=== PATIENT | male | born 1960 | race Caucasian/White ===

== ENCOUNTER 2021-01-26 08:34 | Outpatient (CLI) | payer OTHER, SELFPAY ==
--- NOTE | ~2021-01-26 | US_ITS ---
EXAMINATION: US aorta [facility] DATE: 01/26/2021 09:50 INDICATION: Abdominal aortic aneurysm screening. TECHNIQUE: Grayscale, color Doppler, and pulsed Doppler images of the aorta and common iliac arteries were obtained. COMPARISON: None. FINDINGS: The aorta is normal in caliber and demonstrates atherosclerosis.. The right common iliac artery is no rmal in caliber. The left common iliac artery is normal in caliber. IMPRESSION: 1. Aortic atherosclerosis. No aneurysm. Reviewed, dictated and finalized at location B. [employer]
== END 2021-01-26 08:35 | disposition home or self-care (01) ==
LOC: ANHIMG 08:38
PROVIDERS: PCP Family Medicine Adolescent Medicine; Visit Provider Internal Medicine Cardiovascular Disease
DX: Z72.0 Tobacco use (principal); I70.0 Atherosclerosis of aorta
CPT/HCPCS: 76706

== ENCOUNTER 2022-06-18 00:35 | Day surgery (SDC) | payer OTHER, SELFPAY ==
[2022-06-18] VITALS (8 sets, daily range): BP systolic 150–165; BP diastolic 67–77; PULSE 48–57; RESP 10–21; TEMP 36.6; O2SAT 97–100; BMI 23.0
[2022-06-18 09:28] LABS: Basophils Absolute Auto 0.2 K/mm3 (0.0-0.1); Basophils Percent Auto 1.2 % (0.2-1.2); Hematocrit 49.5 % (42.0-52.0); Hemoglobin 16.4 g/dL (14.0-18.0); Immature Granulocyte Absolute 0.13 K/mm3 (0.00-0.031); Lymphocytes Percent Auto 20.2 % (18.3-44.2); Mean Corpuscular HGB Conc 33.1 g/dl (32-36); Mean Corpuscular Hemoglobin 32.8 pg (26-34); Mean Platelet Volume 9.9 fl (7.4-10.4); Monocytes Percent Auto 7.6 % (2.6-8.5); Platelet Count Result 222 k/mm3 (150-375); Red Cell Distribution Width 13.7 % (11.5-14.5); White Blood Count 12.9 K/mm3 (4.5-10.0)
[2022-06-18 10:01] LABS: Anion Gap 6 mmol/L (8-16); Blood Urea Nitrogen 11 mg/dL (9-20); Calcium 8.4 mg/dL (8.4-10.2); Carbon Dioxide 29 mmol/L (22-30); Chloride 104 mmol/L (98-107); Estimated CRCL calculation 72 ml/min; Estimated Glomerular Filt Rate > 60; Glucose 96 mg/dL (65-110); Potassium 4.2 mmol/L (3.4-5.0); Sodium 139 mmol/L (137-145)
--- NOTE | 2022-06-18 10:35 | SUR.PREOP ---
DR. SAEED TO BEDSIDE TO SPEAK W/ PT. PRIOR TO [facility].
--- NOTE | 2022-06-18 10:51 | WPDMODSED ---
Moderate Sedation Note-Pt Data Patient Data Diagnosis: coronary artery disease as evidenced by coronary CTA Present Complaint: no complaints Procedure to be performed/Plan: left heart catheterization Allergies Allergy/AdvReac Type Severity Reaction Status Date / Time codeine Allergy Unknown Nausea Verified 06/18/22 09:23 Home Medications Medication Instructions Recorded Confirmed Type aspirin 81 mg tablet,delayed 81 mg PO DAILY 06/18/22 06/18/22 History release atenolol 25 mg tablet 25 mg PO DAILY 06/18/22 06/18/22 History hydralazine 25 mg tablet 25 mg PO TID 06/18/22 06/18/22 History simvastatin 40 mg tablet 40 mg PO HS 06/18/22 06/18/22 History Current Medications: Active Medications Sodium Chloride (Normal Saline Iv) 500 mls @ 100 mls/hr IV CONT .[facility] Sedation/Anesthesia: No previous sedation/anesthesia problems (including family history). [facility] Family History Family History (Updated 05/18/16 @ 09:48 by DOCTOR UNKNOWN) Sibling Hypertension Mother Acute myocardial infarction Father Family history of lung cancer Other Cerebrovascular accident Diabetes mellitus Family history of cardiovascular disease Family history of malignant neoplasm Social History Social History Smoking status: Current every day smoker Alcohol intake: never Mod Sed Physical Exam Physical Exam Pre Procedural Exam: Normal: Appearance ( well-developed well-nourished white male appearing slightly older than his stated age), Neck, Throat, Airway, Heart Size, Heart Rate, Heart Rhythm, Neuro Exam and Extremities and Variation: Lungs ( breath sounds diminished otherwise clear) Hours since solid foods: 12 Hours since liquid intake: 12 Mallampati Classification: class II Internal Medicine - PN: Obj Da Vital Signs Vital Signs: Vital Signs - 24 hr 06/18/22 10:00 Temperature 36.6 C Pulse Rate 48 L Respiratory Rate 14 Blood Pressure 165/76 H Pulse Oximetry 100 Oxygen Delivery Room Air Meds/Results Medications: Active Medications Generic Name Dose Route Start Last Admin Trade Name Freq PRN Reason Stop Dose Admin Sodium Chloride 500 mls @ 100 mls/hr 06/18/22 09:00 Normal Saline Iv IV CONT .[facility] Labs 06/18/22 09:15 06/18/22 09:38 Labs: Laboratory Results - last 24 hr 06/18/22 06/18/22 09:15 09:38 WBC 12.9 H RBC 5.00 Hgb 16.4 Hct 49.5 MCV 99.0 MCH 32.8 MCHC 33.1 RDW 13.7 Plt Count 222 MPV 9.9 Immature Gran % (Auto) 1.0 H Neut % (Auto) 70.0 Lymph % (Auto) 20.2 [place] % (Auto) 7.6 Eos % (Auto) 0.0 Baso % (Auto) 1.2 Lymph # (Auto) 2.60 [place] # (Auto) 1.0 H Eos # (Auto) 0.0 Baso # (Auto) 0.2 H Abs Immat Gran (auto) 0.13 H Absolute Neuts (auto) 9.0 H Absolute Nucleated RBC 0.0 Nucleated RBC % 0.0 Sodium 139 Potassium 4.2 Chloride 104 Carbon Dioxide 29 Anion Gap 6 L BUN 11 Creatinine 0.80 Estim Creat Clear Calc 72 Estimated GFR > 60 Glucose 96 Calcium 8.4 ASA Classification/Sedation ASA Classification/Sedation ASA Class: II Emergent: No Risks: Risks, benefits and alternatives explained and patient/family accepted plan for sedation. Patient re-evaluated immediately prior to sedation.
--- NOTE | 2022-06-18 10:54 | PM.IMHP ---
H&P: HPI History of Present Illness Date/Time: 06/18/22 10:54 Chief Complaint: no complaints Narrative: this is a 61-year-old patient unknown to me prior to this procedure. He follows with my partner, Dr. Villagran and has a history of mild nonobstructive coronary artery disease identified by catheterization approximately 10 years ago. The patient subsequently was seen and evaluated because of a syncopal episode. Evaluation did not disclose any apparent reason for that. In subsequent follow-up because of his risk factors and ongoing cigarette smoking a coronary CTA was performed. This demonstrated what appears to be moderate multivessel coronary artery disease after this follow-up angiography was recommended for today. The patient states that he is active he does not notice any symptoms with exertion he is able to carry on normal activities although he does not exercise in any structured fashion. He has no symptoms of chest pain he does have some exertional shortness of breath which is relatively mild and chronic. He is not experiencing any orthopnea PND or accumulating edema. Review of Systems Constitutional: Constitutional: Reports no additional constitutional complaints Eyes: Eyes: Reports no additional eye complaints ENT: Reports system reviewed and no additional complaints, except as documented Cardiovascular: Cardiovascular: Reports no additional cardiovascular complaints Respiratory: Respiratory: Reports dyspnea on exertion Gastrointestinal: Gastrointestinal: Reports no additional gastrointestinal complaints Musculoskeletal: Musculoskeletal: Reports no additional musculoskeletal complaints Integumentary/Breasts: Skin/Breast: Reports system reviewed and no additional complaints, except as docu Neurologic: Reports system reviewed and no additional complaints, except as documented [facility] Family History Family History (Updated 05/18/16 @ 09:48 by DOCTOR UNKNOWN) Sibling Hypertension Mother Acute myocardial infarction Father Family history of lung cancer Other Cerebrovascular accident Diabetes mellitus Family history of cardiovascular disease Family history of malignant neoplasm Social History Social History Smoking status: Current every day smoker Alcohol intake: never Meds Home Medications and Allergies Home Medications Medication Instructions Recorded Confirmed Type aspirin 81 mg tablet,delayed 81 mg PO DAILY 06/18/22 06/18/22 History release atenolol 25 mg tablet 25 mg PO DAILY 06/18/22 06/18/22 History hydralazine 25 mg tablet 25 mg PO TID 06/18/22 06/18/22 History simvastatin 40 mg tablet 40 mg PO HS 06/18/22 06/18/22 History Allergies Allergy/AdvReac Type Severity Reaction Status Date / Time codeine Allergy Unknown Nausea Verified 06/18/22 09:23 Vital Signs Vital Signs - 24 hr 06/18/22 10:00 Temperature 36.6 C Pulse Rate 48 L Respiratory Rate 14 Blood Pressure 165/76 H Pulse Oximetry 100 Oxygen Delivery Room Air Exam Const: General: comfortable and no acute distress Other: Well-developed well-nourished white male appearing a bit older than his stated age no distress of any kind HENMT: Mouth: Yes moist mucous membranes Eyes: Sclera: sclerae normal Pupils: Equal, round and reactive pupils present Neck: Neck: supple and no JVD Other: normal carotid pulses bilaterally no audible bruits Resp: Effort & Inspection: normal respiratory effort Auscultation: clear to auscultation bilaterally Cardio: Rate: regular rate Rhythm: regular rhythm Other: very soft systolic murmur does not radiate from the left sternal border no diastolic murmur no gallop GI: GI Palp: Yes Soft to palpation Auscultation: normal bowel sounds Skin: General skin exam: normal color Neuro: Other: alert oriented x3, normal cognition Extrem: Other: warm, well perfused no edema H&P: Results Labs Labs: Short CBC 06/18/22 Range/Units 09:15
--- NOTE | 2022-06-18 11:25 | P.PCNCC_ITS ---
Cardiac Cath Procedure Note Date of procedure:: 06/18/22 Performing physician:: Oscar Moulton MD Indication:: coronary artery disease per CTA Brief clinical history:: this is a 61-year-old man with hypertension tobacco abuse and dyslipidemia who underwent coronary CT he was found according to the report to have mild to moderate multivessel coronary disease. Angiography has been recommended. The patient is not reporting angina. Procedure Procedure performed:: Left ventriculogram coronary angiogram Angio-Seal to right femoral artery Sedation/Medication given:: fentanyl 50 mg Versed 2 mg case start time 11:03 a.m. case end time 11:20 a.m. sedation provided by Elen Paulino RN, trained observer Access site:: right femoral artery Estimated blood loss:: 25 cc Procedure note:: patient was brought to the cardiac catheterization lab in the postabsorptive right femoral triangle was prepared draped in the usual fashion. Anesthesia was provided with 1% lidocaine infiltrated locally. Modified Seldinger technique a 5 [place]amese sheath was placed into the right common femoral artery after this left heart catheterization took place. I used a 5 [place]amese angled pigtail catheter to measure left-sided hemodynamics inject the left ventriculogram in the JOSEPH projection. Following this a 5 [place]amese FL4 catheter was used to engage and inject the left coronary artery multiple projections. Lastly a 5 [place]amese JR4 catheter was used to engage and inject the right coronary artery in orthogonal projections. The case was then terminated the cineangiograms were reviewed. An angiogram was done of the femoral artery through the sheath after which a 6 Sur[place]amese Angio-Seal device was deployed with a good hemostatic result. 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 Findings:: Hemodynamics: Central aortic pressure is 170 over 72 left ventricle 170 over to end-diastolic 16 there is no systolic gradient pullback across the aortic valve. Left ventricle: The LV is normal in size. There is appropriate co ntractility in all segments. The global ejection fraction I visually estimate to be 50%. The left main coronary artery is patent. There is mild ostial narrowing of the left main no more than about 40% stenosis. The left anterior descending is a medium caliber artery extending down to around the apex. The LAD has minimal luminal irregularities but no flow- limiting lesions are seen. The circumflex is medium in caliber giving rise to the marginal branches. The circumflex system has no angiographic abnormalities. Right coronary artery is moderate to large caliber and dominant to the posterior circulation. There is calcification of the wall of the aorta at the origin / foot of the right coronary artery but there are no lesions at the ostium. The remainder of the right coronary artery is free of significant disease there is minimal plaquing in the 2nd portion of the artery. Conclusion:: 1. Right coronary dominant circulation with no angiographically significant coronary artery lesions as described above. 2. Normal left ventricular size with systolic contractility that is in the low-normal range. 3. systemic hypertension with mildly elevated LVEDP Oscar Moulton MD FACC
== END 2022-06-18 15:00 | disposition home or self-care (01) ==
PROVIDERS: PCP Family Medicine Adolescent Medicine; Visit Provider Specialist
PROC: 4A023N7 Measurement of Cardiac Sampling and Pressure, Left Heart, Percutaneous Approach (ICD-10-PCS; CPT 93452; principal; 2022-06-18 10:30)
DX: I25.10 Atherosclerotic heart disease of native coronary artery without angina pectoris (principal); I10 Essential (primary) hypertension; Z79.82 Long term (current) use of aspirin; F17.200 Nicotine dependence, unspecified, uncomplicated
CPT/HCPCS: 36415; 80048; 85025; 93458; C1760; C1769; C1887; C1894; G0269; J1644; J2250; J3010; J7040

== ENCOUNTER 2022-06-22 14:34 | Outpatient (CLI) | payer OTHER, SELFPAY ==
--- NOTE | ~2022-06-22 | US_ITS ---
EXAMINATION: US carotid duplex BI DATE: 06/22/2022 15:15 INDICATION: Carotid bruit TECHNIQUE: Grayscale, color Doppler, and pulsed Doppler images of the cervical carotid arteries were obtained. The degree of vessel stenosis is placed in one of the following categories: normal, <50%, 5 0-69%, >=70% but less than near-occlusion, near-occlusion, or total occlusion. Note that percent sten osis relative to normal distal artery lumen diameter is indirectly measured from velocity measurement s as described by Albert, et al. Radiology 2003; 229:340-346. Notes: Normal: Peak systolic velocity <125 centimeters/sec and no plaque <50%. Peak systolic velocity <125 ( EDV <40; ICA/CCA PSV ratio <2.0; used these factors only a tandem lesions or low cardiac output or co ntralateral disease) 50-69 %: PSV 125-230 (EDV 40-100; ratio 2-4) >= 70% but less than near occlusion: PSV greater than 230 (EDV > 100; ratio> 4.0) Near Occlusion: PSV that is variable; markedly narrowed lumen Occlusion: Absent flow on color/spectral Doppler and no lumen on ruff scale. COMPARISON: None. FINDINGS: RIGHT: The right common carotid artery (CCA) peak systolic velocity (PSV) is 101 cm/s. The right internal ca rotid artery (ICA) PSV is 111 cm/s. The right ICA end-diastolic velocity (EDV) is 35 cm/s. The right ICA/CCA PSV ratio is 1.1. The external carotid artery (ECA) PSV is 94 cm/s. There is antegrade flow i n the right vertebral artery. LEFT: The left CCA PSV is 136 cm/s. The left ICA PSV is 77 cm/s. The left ICA EDV is 30 cm/s. The left ICA/ CCA PSV ratio is 0.6. The ECA PSV is 92 cm/s. There is antegrade flow in the left vertebral artery. IMPRESSION: 1. Less than 50% stenosis in the right internal carotid artery by sonographic criteria. 2. Less than 50% stenosis in the left internal carotid artery by sonographic criteria. Reviewed, dictated and finalized at location A. IMPRESSION: 1. Less than 50% stenosis in the right internal carotid artery by sonographic adonay turner. 2. Less than 50% stenosis in the left internal carotid artery by sonographic sukhdeep hoffmann.
== END 2022-06-22 14:35 | disposition home or self-care (01) ==
PROVIDERS: PCP Family Medicine Adolescent Medicine; Visit Provider Internal Medicine Cardiovascular Disease
DX: I65.23 Occlusion and stenosis of bilateral carotid arteries (principal); R09.89 Other specified symptoms and signs involving the circulatory and respiratory systems
CPT/HCPCS: 93880